=== PATIENT | female | born 1985 | race African-American/Black ===

== ENCOUNTER 2017-04-15 12:11 | Emergency (ER) | payer MEDICARE ==
[2017-04-15 12:57] LABS: Bilirubin Negative (Negative); Blood, Urine Negative (Negative); Glucose, Urine (Dipstick) Negative (Negative); Ketone, Urine 40 mg/dL (Negative); Nitrite Negative (Negative); Protein, Urine (Dipstick) Negative (Neg-Trace); Urobilinogen 0.2 mg/dL (0.2-1.0)
[2017-04-15 13:19] LABS: #Lymphocytes 2.3 thou/uL (1.20-3.40); #Monocytes 0.8 thou/uL (0.11-0.59); #Neutrophils 3.9 thou/uL (1.40-6.50); %Basophils 0.6 % (0.0-1.0); %Eosinophils 0.4 % (0.0-10.0); %Lymphocytes 32.1 % (21.0-51.0); %Monocytes 11.1 % (0.0-10.0); Hematocrit 45.8 % (36.0-47.0); Mean Platelet Volume 7.6 fL (7.4-10.4); Red Blood Cell (RBC) Count 4.81 mill/uL (4.20-5.40)
[2017-04-15 13:35] LABS: ALT (SGPT) 8 U/L (8-55); AST (SGOT) 15 U/L (5-34); Alkaline Phosphatase 50 U/L (40-150); Anion Gap 12 mmol/L (10-20); BUN (Urea Nitrogen) 8 mg/dL (7.0-18.7); Bilirubin, Total 0.6 mg/dL (0.2-1.2); Calc. Creatinine Clearance 0 mL/min (70-130); Carbon Dioxide 25 mmol/L (22-29); Chloride 104 mmol/L (98-107); Estimated GFR-MDRD 83; Protein, Total 8.2 g/dL (6.0-8.3)
== END 2017-04-15 14:41 | disposition home or self-care (01) ==
LOC: ERS 12:11
DX: R10.30 Lower abdominal pain, unspecified (principal); E28.2 Polycystic ovarian syndrome; F31.9 Bipolar disorder, unspecified
CPT/HCPCS: 36415; 80053; 81003; 81025; 84702; 85025; 99284

== ENCOUNTER 2017-05-25 12:58 | Outpatient (CLI) | payer MEDICARE ==
--- NOTE | 2017-05-25 13:53 | RAD ---
RIGHT FOOT TWO VIEWS: History: Right foot pain. FINDINGS/IMPRESSION: No fracture, dislocation, or bony destruction is identified. A small plantar calcaneal spur is presen t. POS: [facility]
== END 2017-05-25 12:59 | disposition home or self-care (01) ==
LOC: RAD 12:58
PROVIDERS: ATTEND Family Medicine
DX: M79.671 Pain in right foot (principal)

== ENCOUNTER 2017-10-05 10:44 | Emergency (ER) | payer MEDICAID, MEDICARE ==
[2017-10-05] MEDS ORDERED: Ketorolac Tromethamine 60 MG/2 ML VIAL ONE (12:01)
== END 2017-10-05 12:35 | disposition home or self-care (01) ==
LOC: ERS 10:44
DX: M54.6 Pain in thoracic spine (principal); F31.9 Bipolar disorder, unspecified
CPT/HCPCS: 96372; J1885

== ENCOUNTER 2023-07-21 08:00 | Emergency (ER) | payer OTHER, SELFPAY ==
[2023-07-21 09:42] LABS: Influenza A by NAA Not Detected (NotDetected); Influenza B by NAA Not Detected (NotDetected); SARS-CoV-2 NAA Rapid Test Not Detected (NotDetected)
== END 2023-07-21 10:00 | disposition home or self-care (01) ==
LOC: ERS 08:00
DX: B34.9 Viral infection, unspecified (principal); R03.0 Elevated blood-pressure reading, without diagnosis of hypertension; E78.00 Pure hypercholesterolemia, unspecified; E28.2 Polycystic ovarian syndrome; N80.9 Endometriosis, unspecified; Z55.6 Problems related to health literacy
CPT/HCPCS: 99284